=== PATIENT | male | born 1965 | race Two or more races ===

== ENCOUNTER 2018-11-22 14:56 | Inpatient (IN) | payer OTHER ==
[2018-11-22 19:12] VITALS: BMI 23.6
--- NOTE | 2018-11-22 21:55 | HP ---
CIWA Score Nausea/Vomitin (vomiting x 3) Muscle Tremors: 3 Anxiety: 4-Mod. Anxious/Guarded Agitation: 4-Moderately Restless Paroxysmal Sweats: 2 Orientation: 0-Oriented Tacttile Disturbances: 0-None Auditory Disturbances: 0-None Visual Disturbances: 0-None Headache: 0-None Present CIWA-Ar Total Score: 18 - Admission Criteria OASAS Guidelines: Admission for Medically Managed Detox: Requires at least one of the followin. CIWA greater than 12 2. Seizures within the past 24 hours 3. Delirium tremens within the past 24 hours 4. Hallucinations within the past 24 hours 5. Acute intervention needed for co occurring medical disorder 6. Acute intervention needed for co occurring psychiatric disorder 7. Severe withdrawal that cannot be handled at a lower level of care (continued vomiting, continued diarrhea, abnormal vital signs) requiring intravenous medication and/or fluids 8. Admission ROS [facility] Chief Complaint: Alcohol withdrawal symptoms Allergies/Adverse Reactions: Allergies Allergy/AdvReac Type Severity Reaction Status Date / Time No Known Allergies Allergy Verified 11/22/18 19:03 History of Present Illness: 53 years old male with a long history of alcohol dependence is seeking admission to detox. Patient reports insignificant period of sobriety. This is his first admission to [facility]. He has medical history of Diabetes Type 2 and depression. Patient reports that he is not compliant with medication administration and he does not monitor his blood sugar level because he is homeless. Blood sugar level this visit is 87mg/dl. He denies suicide attempt and suicidal ideation at this time - Ebola screening Have you traveled outside of the country in the last 21 days: No Have you had contact with anyone from an Ebola affected area: No Do you have a fever: No - Review of Systems Constitutional: Loss of Appetite, Malaise, Changes in sleep EENT: reports: Nose Congestion Respiratory: reports: No Symptoms reported Cardiac: reports: No Symptoms Reported GI: reports: Poor Appetite, Poor Fluid Intake, Vomiting, Abdominal cramping : reports: No Symptoms Reported Musculoskeletal: reports: Back Pain Integumentary: reports: Dryness, Flushing Neuro: reports: Tremors Endocrine: reports: Flushing, Increased Hunger, Increased Thirst Hematology: reports: No Symptoms Reported Psychiatric: reports: Anxious Other Systems: Reviewed and Negative Patient History - Patient Medical History Hx Anemia: No Hx Asthma: No Hx Chronic Obstructive Pulmonary Disease (COPD): No Hx Cancer: No Hx Cardiac Disorders: No Hx Congestive Heart Failure: No Hx Hypertension: No Hx Hypercholesterolemia: No Hx Pacemaker: No HX Cerebrovascular Accident: No Hx Seizures: No Hx Dementia: No Hx Diabetes: Yes (TYPE 2. NOT ON MEDIATION) Hx Gastrointestinal Disorders: No Hx Liver Disease: No Hx Genitourinary Disorders: No Hx Sexually Transmitted Disorders: No Hx Renal Disease (ESRD): No Hx Thyroid Disease: No Hx Human Immunodeficiency Virus (HIV): No (NEGATIVE 2018) Hx Hepatitis C: No Hx Depression: Yes (NOT ON MEDICATION) Hx Suicide Attempt: No (DENIES SUICIDAL ATTEMPT / SUICIDAL IDEATION AT THIS TIME ) Hx Bipolar Disorder: No Hx Schizophrenia: No - Patient Surgical History Past Surgical History: No - PPD History Previous Implant?: Yes Documented Results: Positive w/o proof Implanted On Prior [facility] Admission?: No PPD to be Administered?: Yes - Reproductive History Patient is a Female of Child Bearing Age (11 -55 yrs old): No (MALE) - Smoking Cessation Smoking history: Current every day smoker Have you smoked in the past 12 months: Yes Aproximately how many cigarettes per day: 20 Hx Chewing Tobacco Use: No Initiated information on smoking cessation: Yes 'Breaking Loose' booklet given: 11/22/18 - Substance & Tx. History Hx Alcohol Use: Yes Hx Substance Use: Yes Substance Use Type: Alcohol, Cocaine, Marijuana Hx Substance Use Treatment: Yes - Substances abused Crack Substance route: Smoking Frequency: Daily Amount used: 100 dollars Age of first use: 53 Date of last use: 11/22/18 Alcohol Substance route: Oral Frequency: Daily Amount used: 6- 10 bottles of beer Age of first use: 22 Date of last use: 11/22/18 Family Disease History - Family Disease History Family History: Denies Admission Physical Exam S - Vital Signs Vital Signs: Vital Signs - 24 hr 11/22/18 19:02 Temperature 97.7 F Pulse Rate 86 Respiratory 16 Rate Blood Pressure 140/89 - Physical General Appearance: Yes: Moderate Distress, Tremorous, Anxious HEENTM: Yes: EOMI, Normal ENT Inspection, Normal Voice Respiratory: Yes: Lungs Clear, Normal Breath Sounds, No Respiratory Distress Neck: Yes: Supple Breast: Yes: Breast Exam Deferred Cardiology: Yes: Regular Rhythm, Regular Rate Abdominal: Yes: Normal Bowel Sounds, Soft Genitourinary: Yes: Within Normal Limits Back: Yes: Normal Inspection Musculoskeletal: Yes: Back pain, Muscle Pain Extremities: Yes: Tremors Neurological: Yes: Alert, Normal Mood/Affect Integumentary: Yes: Warm Lymphatic: Yes: Within Normal Limits - Diagnostic (1) Alcohol dependence with uncomplicated withdrawal Current Visit: Yes Status: Acute (2) Nicotine dependence Current Visit: Yes Status: Chronic Qualifiers: Nicotine product type: cigarettes Substance use status: uncomplicated Qualified Code(s): F17.210 - Nicotine dependence, cigarettes, uncomplicated (3) Depression Current Visit: Yes Status: Chronic Qualifiers: Depression Type: unspecified Qualified Code(s): F32.9 - Major depressive disorder, single episode, unspecified (4) DM type 2 (diabetes mellitus, type 2) Current Visit: Yes Status: Acute Qualifiers: Diabetes mellitus complication status: without complication Cleared for Admission S - Detox or Rehab [facility] Level of Care: Medically Managed Detox Regimen/Protocol: Librium Breathalyzer - Breathalyzer Breathalyzer: 0 Urine Drug Screen - Test Device Lot number: [id number] Expiration date: 08/19/20 - Control Is test valid?: Yes - Results Drug screen NEGATIVE: No Urine drug screen results: THC-Marijuana, AMY-Cocaine, BZO-Benzodiazepines Inpatient Rehab Admission - Rehab Decision to Admit Inpatient rehab admission?: No
[2018-11-22] MEDS ORDERED: MAGNESIUM HYDROX 2400MG/30ML ORAL SUSPENSION 30 ML CUP PO PRN (22:06)
[2018-11-22] MEDS ORDERED: chlordiazePOXIDE HCL 25 MG CAPSULE PO PRN (22:06)
[2018-11-22] MEDS ORDERED: ACETAMINOPHEN 325 MG TABLET (FP) PO PRN ×2 (22:06)
[2018-11-22] MEDS ORDERED: IBUPROFEN 400 MG TABLET (FP) PO PRN (22:06)
[2018-11-22] MEDS ORDERED: hydrOXYzine PAMOATE 25 MG CAPSULE (FP) PO PRN (22:06)
[2018-11-22] MEDS ORDERED: MELATONIN 5 MG TABLETS PO PRN (22:06)
[2018-11-22] MEDS ORDERED: MAGNESIUM CITRATE 300 ML BOTTLE PO PRN (22:06)
[2018-11-22] MEDS ORDERED: BISMUTH SUBSALICYLATE 524 MG/30 ML UD PO PRN (22:06)
[2018-11-22] MEDS ORDERED: MENTHOL/PHENOL 1 EACH UD MM PRN (22:06)
[2018-11-22] MEDS ORDERED: MAG HYDROX/AL HYDROX/SIMETH 30 ML UNIT-DOSE CUP PO PRN (22:06)
[2018-11-22] MEDS ORDERED: METHOCARBAMOL 500 MG TABLET PO PRN (22:06)
[2018-11-22] MEDS: chlordiazePOXIDE HCL 25 MG CAPSULE PO SCH (23:49)
[2018-11-23] MEDS: chlordiazePOXIDE HCL 25 MG CAPSULE PO SCH ×3 (06:31→18:07)
--- NOTE | 2018-11-23 09:17 | EKG ---
Test Reason : Blood Pressure : / mmHG Vent. Rate : 080 BPM Atrial Rate : 080 BPM P-R Int : 154 ms QRS Dur : 084 ms QT Int : 392 ms P-R-T Axes : 070 -04 061 degrees QTc Int : 452 ms NORMAL SINUS RHYTHM NORMAL ECG NO PREVIOUS ECGS AVAILABLE Confirmed by ASHLYN GUTIERREZ MD ([id number]) on 11/23/2018 9:16:54 AM Referred By: CATALINA RAMÍREZ Confirmed By:ASHLYN GUTIERREZ MD
[2018-11-23] MEDS: PRENATAL VITAMINS W/ FOLIC ACID TABLET (FP) PO SCH (10:30)
[2018-11-23] MEDS: NICOTINE 14 MG/24 HOURS TOPICAL PATCH TD SCH (10:30)
[2018-11-23] MEDS: NICOTINE POLACRILEX 2 MG GUM BUC PRN ×2 (10:31→22:54)
[2018-11-23 11:38] LABS: HEMOGLOBIN 12.4 GM/dL (11.7-16.9); MCH 25.9 pg (25.7-33.7); MCHC 31.8 g/dl (32.0-35.9); MEAN CELL VOLUME 81.4 fl (80-96); MEAN PLT VOLUME 9.1 fl (7.5-11.1); PLATELET COUNT 258 K/MM3 (134-434); RBC 4.79 M/mm3 (4.00-5.60); RDW 15.2 % (11.9-15.9); WHITE BLOOD COUNT 7.1 K/mm3 (4.0-10.0)
[2018-11-23 11:47] LABS: ALBUMIN 3.2 g/dl (3.4-5.0); BILIRUBIN,TOTAL 0.2 mg/dL (0.2-1); BLOOD UREA NITROGEN 14.8 mg/dL (7-18); CALCIUM 8.8 mg/dL (8.5-10.1); CREATININE 1.1 mg/dL (0.55-1.3); POTASSIUM 3.9 mmol/L (3.5-5.1); TOT PROT 6.8 g/dl (6.4-8.2)
[2018-11-23] MEDS ORDERED: PNEUMOCOCCAL 23 VACCINE 0.5 ML VIAL IM ONE (12:00)
[2018-11-23] MEDS ORDERED: PNEUMOC 13-VAL CONJ-DIP CRM/PF 0.5 ML DISP.SYRIN IM ONE (12:00)
--- NOTE | 2018-11-23 15:10 | PN ---
[facility] CIWA - CIWA Score Nausea/Vomitin-Mild Nausea/No Vomiting Muscle Tremors: 4-Moderate,w/Arms Extend Anxiety: 4-Mod. Anxious/Guarded Agitation: 4-Moderately Restless Paroxysmal Sweats: 3 Orientation: 0-Oriented Tacttile Disturbances: 0-None Auditory Disturbances: 0-None Visual Disturbances: 0-None Headache: 0-None Present CIWA-Ar Total Score: 16 S Progress Note (SOAP) Subjective: Sweating, sxs controlled with meds Objective: 11/23/18 15:05 Last Vital Signs Temp Pulse Resp BP Pulse Ox 97.9 F 85 16 131/88 11/23/18 13:30 11/23/18 13:30 11/23/18 13:30 11/23/18 13:30 Admission labs reviewed: hyperglycemia noted Assessment: 11/23/18 15:06 Withdrawal sxs Noted with hyperglycemia Plan: Continue detox Encouraged PO water intake Hyperglycemia r/t DM (not on med), send HbA1c, continue to monitor, initiate treatment if warranted
[2018-11-23] MEDS: THIAMINE HCL 100 MG TABLET (FP) PO SCH (22:32)
[2018-11-23] MEDS ORDERED: chlordiazePOXIDE HCL 10 MG CAPSULE PO SCH (23:00)
[2018-11-24] MEDS ORDERED: chlordiazePOXIDE 5 MG CAPSULE PO ONE (05:45)
[2018-11-24] MEDS: chlordiazePOXIDE HCL 25 MG CAPSULE PO SCH ×4 (07:11→22:26)
[2018-11-24] MEDS: PRENATAL VITAMINS W/ FOLIC ACID TABLET (FP) PO SCH (10:54)
[2018-11-24] MEDS: NICOTINE POLACRILEX 2 MG GUM BUC PRN (10:55)
[2018-11-24] MEDS: NICOTINE 14 MG/24 HOURS TOPICAL PATCH TD SCH (10:55)
--- NOTE | 2018-11-24 14:42 | PN ---
S CIWA - CIWA Score Nausea/Vomitin-No Nausea/No Vomiting Muscle Tremors: 3 Anxiety: 3 Agitation: 2 Paroxysmal Sweats: 3 Orientation: 2-Disoriented Date<2 days Tacttile Disturbances: 0-None Auditory Disturbances: 0-None Visual Disturbances: 0-None Headache: 0-None Present CIWA-Ar Total Score: 13 B[facility] Progress Note (SOAP) Subjective: Anxious, Sweating, Tremors. Objective: PATIENT A & O X 1 (UNCERTAIN ABOUT CURRENT DAY / DATE AND ABOUT CURRENT LOCATION ). IN NO ACUTE DISTRESS. 11/24/18 14:44 Vital Signs Temperature 100.2 F H 11/24/18 13:07 Pulse Rate 106 H 11/24/18 13:07 Respiratory Rate 18 11/24/18 13:07 Blood Pressure 149/85 11/24/18 13:07 O2 Sat by Pulse Oximetry (%) Laboratory Tests 11/22/18 11/23/18 11/23/18 22:02 06:30 08:00 WBC 7.1 RBC 4.79 Hgb 12.4 Hct 39.0 MCV 81.4 MCH 25.9 MCHC 31.8 L RDW 15.2 Plt Count 258 MPV 9.1 Sodium Potassium Chloride Carbon Dioxide Anion Gap BUN Creatinine Est GFR (CKD-EPI)AfAm Est GFR (CKD-EPI)NonAf POC Glucometer 87 119 Random Glucose Hemoglobin A1c % Calcium Total Bilirubin AST ALT Alkaline Phosphatase Total Protein Albumin RPR Titer 11/23/18 11/23/18 11/23/18 08:00 08:00 16:49 WBC RBC Hgb Hct MCV MCH MCHC RDW Plt Count MPV Sodium 143 Potassium 3.9 Chloride 109 H Carbon Dioxide 29 Anion Gap 5 L BUN 14.8 Creatinine 1.1 Est GFR (CKD-EPI)AfAm 88.98 Est GFR (CKD-EPI)NonAf 76.77 POC Glucometer 154 Random Glucose 132 H Hemoglobin A1c % Calcium 8.8 Total Bilirubin 0.2 AST 17 ALT 18 Alkaline Phosphatase 98 Total Protein 6.8 Albumin 3.2 L RPR Titer Nonreactive 11/24/18 11/24/18 07:00 07:07 WBC RBC Hgb Hct MCV MCH MCHC RDW Plt Count MPV Sodium Potassium Chloride Carbon Dioxide Anion Gap BUN Creatinine Est GFR (CKD-EPI)AfAm Est GFR (CKD-EPI)NonAf POC Glucometer 139 Random Glucose Hemoglobin A1c % 5.7 Calcium Total Bilirubin AST ALT Alkaline Phosphatase Total Protein Albumin RPR Titer LABS NOTED. RESULT OF HGB A1C NOTED (WITHIN NORMAL RANGE). ENSURE PO FOR CALORIC SUPPLEMENTATION. 11/24/18 14:46 Assessment: 11/24/18 14:47 WITHDRAWAL SYMPTOMS. Plan: CONTINUE DETOX. INCREASE DAILY PO WATER INTAKE.
[2018-11-24] MEDS: THIAMINE HCL 100 MG TABLET (FP) PO SCH (22:27)
[2018-11-25] MEDS ORDERED: chlordiazePOXIDE HCL 10 MG CAPSULE PO PRN
[2018-11-25] MEDS ORDERED: chlordiazePOXIDE 5 MG CAPSULE ONE (05:40)
[2018-11-25] MEDS: chlordiazePOXIDE HCL 10 MG CAPSULE PO SCH ×2 (06:11→10:55)
--- NOTE | 2018-11-25 10:26 | PN ---
S CIWA - CIWA Score Nausea/Vomitin Muscle Tremors: 2 Anxiety: 2 Agitation: 2 Paroxysmal Sweats: No Perspiration Orientation: 0-Oriented Tacttile Disturbances: 0-None Auditory Disturbances: 0-None Visual Disturbances: 0-None Headache: 2-Mild CIWA-Ar Total Score: 10 BHS Progress Note (SOAP) Subjective: alert,irritable,anxious,interrupted sleep,pain in body and back Objective: 11/25/18 10:25 Vital Signs Temperature 97.9 F 11/25/18 09:19 Pulse Rate 91 H 11/25/18 09:19 Respiratory Rate 16 11/25/18 09:19 Blood Pressure 124/73 11/25/18 09:19 O2 Sat by Pulse Oximetry (%) Assessment: 11/25/18 10:25 withdrawal symptom Plan: continue detox librium regimen
[2018-11-25] MEDS: NICOTINE 14 MG/24 HOURS TOPICAL PATCH TD SCH (10:55)
[2018-11-25] MEDS: PRENATAL VITAMINS W/ FOLIC ACID TABLET (FP) PO SCH (10:55)
--- NOTE | 2018-11-25 13:07 | PN ---
S Progress Note Note: patient did not want to complete treatment,all attempts to convince patient to stay with no avail,the high risk of relapsing explained,patient signed release AMA,seen by counselor
--- NOTE | 2018-11-25 13:13 | DS ---
[facility] Detox Discharge Summary Admission Date: 11/22/18 Discharge Date: 11/25/18 - History Present History: Alcohol Dependence, Cocaine Dependence Pertinent Past History: type 2 dm depression - Physical Exam Results Vital Signs: Vital Signs Temperature 97.9 F 11/25/18 09:19 Pulse Rate 91 H 11/25/18 09:19 Respiratory Rate 16 11/25/18 09:19 Blood Pressure 124/73 11/25/18 09:19 O2 Sat by Pulse Oximetry (%) Pertinent Admission Physical Exam Findings: withdrawal signs and symptom Laboratory Last Values WBC 7.1 K/mm3 (4.0-10.0) 11/23/18 08:00 RBC 4.79 M/mm3 (4.00-5.60) 11/23/18 08:00 Hgb 12.4 GM/dL (11.7-16.9) 11/23/18 08:00 Hct 39.0 % (35.4-49) 11/23/18 08:00 MCV 81.4 fl (80-96) 11/23/18 08:00 MCH 25.9 pg (25.7-33.7) 11/23/18 08:00 MCHC 31.8 g/dl (32.0-35.9) L 11/23/18 08:00 RDW 15.2 % (11.9-15.9) 11/23/18 08:00 Plt Count 258 K/MM3 (134-434) 11/23/18 08:00 MPV 9.1 fl (7.5-11.1) 11/23/18 08:00 Sodium 143 mmol/L (136-145) 11/23/18 08:00 Potassium 3.9 mmol/L (3.5-5.1) 11/23/18 08:00 Chloride 109 mmol/L (98-107) H 11/23/18 08:00 Carbon Dioxide 29 mmol/L (21-32) 11/23/18 08:00 Anion Gap 5 MMOL/L (8-16) L 11/23/18 08:00 BUN 14.8 mg/dL (7-18) 11/23/18 08:00 Creatinine 1.1 mg/dL (0.55-1.3) 11/23/18 08:00 Est GFR (CKD-EPI)AfAm 88.98 11/23/18 08:00 Est GFR (CKD-EPI)NonAf 76.77 11/23/18 08:00 POC Glucometer 127 UNITS (80-120) 11/25/18 06:14 Random Glucose 132 mg/dL (74-106) H 11/23/18 08:00 Hemoglobin A1c % 5.7 % (4.2-6.3) 11/24/18 07:00 Calcium 8.8 mg/dL (8.5-10.1) 11/23/18 08:00 Total Bilirubin 0.2 mg/dL (0.2-1) 11/23/18 08:00 AST 17 U/L (15-37) 11/23/18 08:00 ALT 18 U/L (13-61) 11/23/18 08:00 Alkaline Phosphatase 98 U/L (45-117) 11/23/18 08:00 Total Protein 6.8 g/dl (6.4-8.2) 11/23/18 08:00 Albumin 3.2 g/dl (3.4-5.0) L 11/23/18 08:00 RPR Titer Nonreactive (NONREACTIVE) 11/23/18 08:00 - Treatment Patient has Accepted a Rehab Referral to: patient did not want to complete treatment,signed release ama - Medication Discharge Medications: Ambulatory Orders NK [No Known Home Medication] 11/22/18 - Diagnosis (1) Alcohol dependence with uncomplicated withdrawal Current Visit: Yes Status: Acute (2) DM type 2 (diabetes mellitus, type 2) Current Visit: Yes Status: Acute Qualifiers: Diabetes mellitus complication status: without complication (3) Depression Current Visit: Yes Status: Chronic Qualifiers: Depression Type: unspecified Qualified Code(s): F32.9 - Major depressive disorder, single episode, unspecified (4) Nicotine dependence Current Visit: Yes Status: Chronic Qualifiers: Nicotine product type: cigarettes Substance use status: uncomplicated Qualified Code(s): F17.210 - Nicotine dependence, cigarettes, uncomplicated - AMA Did Patient Leave Against Medical Advice: Yes
[2018-11-25 13:25] VITALS: BP 126/69; PULSE 103; TEMP 97.5
[2018-11-26] MEDS ORDERED: chlordiazePOXIDE HCL 10 MG CAPSULE PO SCH (05:00)
[2018-11-27] MEDS ORDERED: chlordiazePOXIDE HCL 10 MG CAPSULE PO ONE (05:00)
== END 2018-11-25 13:27 | disposition left against medical advice (07) | DRG 770 ==
LOC: YASAS 14:56 → Y6N 22:24
PROVIDERS: ADMIT Surgery; ATTEND Surgery
PROC: HZ2ZZZZ Detoxification Services for Substance Abuse Treatment (ICD-10-PCS; principal; 2018-11-22)
DX: F10.230 Alcohol dependence with withdrawal, uncomplicated (principal); F14.20 Cocaine dependence, uncomplicated; F17.210 Nicotine dependence, cigarettes, uncomplicated; F32.9 Major depressive disorder, single episode, unspecified; E11.65 Type 2 diabetes mellitus with hyperglycemia; Z59.0 Homelessness
CPT/HCPCS: 36415; 80053; 82962; 83036; 85027; 86480; 86593; 90732; 93005; 93010; G0009

== ENCOUNTER 2019-03-21 10:00 | Inpatient (IN) | payer OTHER ==
[2019-03-21 10:47] VITALS: BMI 24.5
--- NOTE | 2019-03-21 11:48 | HP ---
CIWA Score Nausea/Vomitin-No Nausea/No Vomiting Muscle Tremors: None Anxiety: 0-No Anxiety, at Ease Agitation: 0-Normal Activity Paroxysmal Sweats: No Perspiration Orientation: 0-Oriented Tacttile Disturbances: 0-None Auditory Disturbances: 0-None Visual Disturbances: 0-None Headache: 0-None Present CIWA-Ar Total Score: 0 - Admission Criteria OASAS Guidelines: Admission for Medically Managed Detox: Requires at least one of the followin. CIWA greater than 12 2. Seizures within the past 24 hours 3. Delirium tremens within the past 24 hours 4. Hallucinations within the past 24 hours 5. Acute intervention needed for co occurring medical disorder 6. Acute intervention needed for co occurring psychiatric disorder 7. Severe withdrawal that cannot be handled at a lower level of care (continued vomiting, continued diarrhea, abnormal vital signs) requiring intravenous medication and/or fluids 8. Patient presents the following: None of the above Admission Criteria Met: Admission criteria not met Admitting History and Physical - Smoking History Smoking history: Current every day smoker Have you smoked in the past 12 months: Yes Aproximately how many cigarettes per day: 20 - Alcohol/Substance Use Hx Alcohol Use: Yes Admission ROS [facility] Chief Complaint: I am trying to get some help Allergies/Adverse Reactions: Allergies Allergy/AdvReac Type Severity Reaction Status Date / Time No Known Allergies Allergy Verified 03/21/19 10:40 History of Present Illness: Patient is a 53 years old male with long history of alcohol dependence who presents seeking admission to detox. Patient reports insignificant period of sobriety. He was at [facility] detox this past November, he completed treatment as prescribed. As per previous history, he has positive PPD results with no proof. He had quantiferon gold in November which was positive, pt denies ever receiving treatment with [facility]. He denies alcohol related blackouts or seizures. Exam Limitations: No Limitations - Ebola screening Have you traveled outside of the country in the last 21 days: No Have you had contact with anyone from an Ebola affected area: No Have you been sick,other than usual withdrawal symptoms: No Do you have a fever: No - Review of Systems Constitutional: No Symptoms Reported EENT: reports: No Symptoms Reported Respiratory: reports: Cough, SOB with Exertion Cardiac: reports: No Symptoms Reported GI: reports: Nausea, Poor Fluid Intake, Abdominal cramping : reports: No Symptoms Reported Musculoskeletal: reports: Back Pain, Muscle Pain, Muscle Weakness Integumentary: reports: Sweating Endocrine: reports: Increased Urine Hematology: reports: No Symptoms Reported Psychiatric: reports: No Sypmtoms Reported Other Systems: Reviewed and Negative Patient History - Patient Medical History Hx Anemia: No Hx Asthma: No Hx Chronic Obstructive Pulmonary Disease (COPD): No Hx Cancer: No Hx Cardiac Disorders: No Hx Congestive Heart Failure: No Hx Hypertension: No Hx Hypercholesterolemia: No Hx Pacemaker: No HX Cerebrovascular Accident: No Hx Seizures: No Hx Dementia: No Hx Diabetes: Yes (TYPE 2. NOT ON MEDIATION) Hx Gastrointestinal Disorders: No Hx Liver Disease: No Hx Genitourinary Disorders: No Hx Sexually Transmitted Disorders: No Hx Renal Disease (ESRD): No Hx Thyroid Disease: No Hx Human Immunodeficiency Virus (HIV): No (NEGATIVE 2018) Hx Hepatitis C: No Hx Depression: Yes (NOT ON MEDICATION) Hx Suicide Attempt: No (DENIES SUICIDAL ATTEMPT / SUICIDAL IDEATION AT THIS TIME ) Hx Bipolar Disorder: No Hx Schizophrenia: No - Patient Surgical History Past Surgical History: No Hx Neurologic Surgery: No Hx Cataract Extraction: No Hx Cardiac Surgery: No Hx Lung Surgery: No Hx Breast Surgery: No Hx Breast Biopsy: No Hx Abdominal Surgery: No Hx Appendectomy: No Hx Cholecystectomy: No Hx Genitourinary Surgery: No Hx Section: No Hx Orthopedic Surgery: No Anesthesia Reaction: No - Smoking Cessation Smoking history: Current every day smoker Have you smoked in the past 12 months: Yes Aproximately how many cigarettes per day: 20 Hx Chewing Tobacco Use: No - Substances abused Crack Substance route: Smoking Frequency: Daily Amount used: 100 dollars Age of first use: 53 Date of last use: 03/20/19 Alcohol Substance route: Oral Frequency: Daily Amount used: 2pints of vodka Age of first use: 22 Date of last use: 03/21/19 Admission Physical Exam [facility] - Vital Signs Vital Signs: Vital Signs - 24 hr 03/21/19 10:41 Temperature 98.6 F Pulse Rate 93 H Respiratory 18 Rate Blood Pressure 126/80 Breathalyzer - Breathalyzer Breathalyzer: 0 Urine Drug Screen - Test Device Lot number: [id number] Expiration date: 11/19/20 - Control Is test valid?: Yes - Results Drug screen NEGATIVE: No Urine drug screen results: AMY-Cocaine
--- NOTE | 2019-03-21 12:06 | HP ---
CIWA Score Nausea/Vomitin-No Nausea/No Vomiting Muscle Tremors: None Anxiety: 0-No Anxiety, at Ease Agitation: 0-Normal Activity Paroxysmal Sweats: No Perspiration Orientation: 0-Oriented Tacttile Disturbances: 0-None Auditory Disturbances: 0-None Visual Disturbances: 0-None Headache: 0-None Present CIWA-Ar Total Score: 0 - Admission Criteria OASAS Guidelines: Admission for Medically Managed Detox: Requires at least one of the followin. CIWA greater than 12 2. Seizures within the past 24 hours 3. Delirium tremens within the past 24 hours 4. Hallucinations within the past 24 hours 5. Acute intervention needed for co occurring medical disorder 6. Acute intervention needed for co occurring psychiatric disorder 7. Severe withdrawal that cannot be handled at a lower level of care (continued vomiting, continued diarrhea, abnormal vital signs) requiring intravenous medication and/or fluids 8. Patient presents the following: None of the above Admission Criteria Met: Admission criteria not met Admitting History and Physical - Smoking History Smoking history: Current every day smoker Have you smoked in the past 12 months: Yes Aproximately how many cigarettes per day: 20 Admission ROS [facility] Chief Complaint: I need help Allergies/Adverse Reactions: Allergies Allergy/AdvReac Type Severity Reaction Status Date / Time No Known Allergies Allergy Verified 03/21/19 10:40 History of Present Illness: Patient is a 53 year old male with long history of alcohol dependence who presents seeking admission to detox, he however does not meet criteria for admission. His last detox admission was in November 2018. Patient has positive PPD with no proof, he had quantiferon gold done in November that was positive. He denies previous treatment for tuberculosis. Chest x-ray ordered. Patient meets criteria foe rehab, he agrees with the plan to admit him to a rehab bed. Exam Limitations: No Limitations - Ebola screening Have you traveled outside of the country in the last 21 days: No Have you had contact with anyone from an Ebola affected area: No Have you been sick,other than usual withdrawal symptoms: No Do you have a fever: No - Review of Systems Constitutional: Changes in sleep EENT: reports: Nose Congestion Respiratory: reports: Productive cough Cardiac: reports: No Symptoms Reported GI: reports: Poor Fluid Intake : reports: No Symptoms Reported Musculoskeletal: reports: No Symptoms Reported Integumentary: reports: No Symptoms Reported Neuro: reports: No Symptoms reported Endocrine: reports: No Symptoms Reported Hematology: reports: No Symptoms Reported Psychiatric: reports: Depressed Other Systems: Reviewed and Negative Patient History - Patient Medical History Hx Anemia: No Hx Asthma: No Hx Chronic Obstructive Pulmonary Disease (COPD): No Hx Cancer: No Hx Cardiac Disorders: No Hx Congestive Heart Failure: No Hx Hypertension: No Hx Hypercholesterolemia: No Hx Pacemaker: No HX Cerebrovascular Accident: No Hx Seizures: No Hx Dementia: No Hx Diabetes: Yes (TYPE 2. NOT ON MEDIATION) Hx Gastrointestinal Disorders: No Hx Liver Disease: No Hx Genitourinary Disorders: No Hx Sexually Transmitted Disorders: No Hx Renal Disease (ESRD): No Hx Thyroid Disease: No Hx Human Immunodeficiency Virus (HIV): No Hx Hepatitis C: No Hx Depression: Yes (NOT ON MEDICATION) Hx Suicide Attempt: No Hx Bipolar Disorder: No Hx Schizophrenia: No - Patient Surgical History Past Surgical History: No Anesthesia Reaction: No - PPD History Previous Implant?: No Documented Results: Positive w/o proof Implanted On Prior [facility] Admission?: No PPD to be Administered?: No - Smoking Cessation Smoking history: Current every day smoker Have you smoked in the past 12 months: Yes Aproximately how many cigarettes per day: 20 Hx Chewing Tobacco Use: No Initiated information on smoking cessation: Yes 'Breaking Loose' booklet given: 03/21/19 - Substances abused Crack Substance route: Smoking Frequency: Daily Amount used: 100 dollars Age of first use: 53 Date of last use: 03/20/19 Alcohol Substance route: Oral Frequency: Daily Amount used: 2pints of vodka Age of first use: 22 Date of last use: 03/21/19 Admission Physical Exam [facility] - Vital Signs Vital Signs: Vital Signs - 24 hr 03/21/19 10:41 Temperature 98.6 F Pulse Rate 93 H Respiratory 18 Rate Blood Pressure 126/80 - Physical General Appearance: Yes: No Apparent Distress HEENTM: Yes: Hearing grossly Normal, Normocephalic, Normal Voice, LUIGI, Pharynx Normal, Other (poor dentition) Respiratory: Yes: Chest Non-Tender, Decreased Breath Sounds, No Respiratory Distress, No Accessory Muscle Use Neck: Yes: No masses,lesions,Nodules, Supple Breast: Yes: Breast Exam Deferred Cardiology: Yes: Regular Rhythm, Regular Rate, S1, S2 Abdominal: Yes: Normal Bowel Sounds, Non Tender, Soft Genitourinary: Yes: Within Normal Limits Back: Yes: Other (mild kyphosis) Musculoskeletal: Yes: full range of Motion, Gait Steady Extremities: Yes: Within Normal Limits Neurological: Yes: sludge filtration attendant II-XII NML intact, Fully Oriented, Normal Mood/Affect, Normal Response Integumentary: Yes: Normal Color Lymphatic: Yes: Within Normal Limits - Diagnostic (1) Alcohol dependence with uncomplicated withdrawal Current Visit: Yes Status: Chronic (2) DM type 2 (diabetes mellitus, type 2) Current Visit: Yes Status: Acute Qualifiers: Diabetes mellitus complication status: without complication (3) Nicotine dependence Current Visit: Yes Status: Acute Qualifiers: Nicotine product type: cigarettes Substance use status: uncomplicated Qualified Code(s): F17.210 - Nicotine dependence, cigarettes, uncomplicated Cleared for Admission S - Detox or Rehab [facility] Level of Care: Medically Managed Claeared for Rehab Admission: Yes Breathalyzer - Breathalyzer Breathalyzer: 0 Urine Drug Screen - Test Device Lot number: [id number] Expiration date: 11/19/20 - Control Is test valid?: Yes - Results Drug screen NEGATIVE: No Urine drug screen results: AMY-Cocaine Inpatient Rehab Admission - Rehab Decision to Admit Inpatient rehab admission?: Yes - Initial Determination Are CD services needed?: Yes Free of communicable disease: Yes Not in need of hospitalization: No - Rehab Admission Criteria Previous failed treatment: No Poor recovery environment: Yes Comorbidities: Yes Lacks judgement: Yes Patient is meeting Inpatient Rehab admission criteria:: Yes
[2019-03-21] MEDS ORDERED: guaiFENesin 200 MG/10 ML 10 ML UNIT-DOSE CUPS PO PRN (12:12)
[2019-03-21] MEDS ORDERED: P-EPHED 60MG/TRIPROLIDI 2.5MG TABLET PO PRN (12:12)
[2019-03-21] MEDS ORDERED: ACETAMINOPHEN 325 MG TABLET (FP) PO PRN (12:12)
[2019-03-21] MEDS ORDERED: MAGNESIUM CITRATE 300 ML BOTTLE PO PRN (12:12)
[2019-03-21] MEDS ORDERED: MAGNESIUM HYDROX 2400MG/30ML ORAL SUSPENSION 30 ML CUP PO PRN (12:12)
[2019-03-21] MEDS ORDERED: hydrOXYzine PAMOATE 50 MG CAPSULE (FP) PO PRN (12:12)
[2019-03-21] MEDS ORDERED: NICOTINE POLACRILEX 2 MG GUM BUC PRN (12:12)
[2019-03-21] MEDS ORDERED: MAG HYDROX/AL HYDROX/SIMETH 30 ML UNIT-DOSE CUP PO PRN (12:12)
[2019-03-21] MEDS ORDERED: LOPERAMIDE HCL 2 MG CAPSULE PO PRN (12:12)
[2019-03-21] MEDS ORDERED: MENTHOL/PHENOL 1 EACH UD MM PRN (12:12)
[2019-03-21] MEDS ORDERED: IBUPROFEN 400 MG TABLET (FP) PO PRN (12:12)
[2019-03-21] MEDS: NICOTINE 14 MG/24 HOURS TOPICAL PATCH TD SCH (15:23)
[2019-03-21] MEDS: metFORMIN HCL 500 MG TABLET (FP) PO SCH (17:01)
[2019-03-21] MEDS: THIAMINE HCL 100 MG TABLET (FP) PO SCH (21:36)
[2019-03-21] MEDS: MELATONIN 5 MG TABLETS PO PRN (21:37)
[2019-03-22] MEDS: metFORMIN HCL 500 MG TABLET (FP) PO SCH ×2 (06:51→16:44)
[2019-03-22] MEDS: PRENATAL VITAMINS W/ FOLIC ACID TABLET (FP) PO SCH (10:23)
[2019-03-22] MEDS: NICOTINE 14 MG/24 HOURS TOPICAL PATCH TD SCH (10:23)
[2019-03-22 12:33] LABS: HEMATOCRIT 43.1 % (35.4-49); HEMOGLOBIN 13.8 GM/dL (11.7-16.9); MEAN CELL VOLUME 77.9 fl (80-96); MEAN PLT VOLUME 9.7 fl (7.5-11.1); PLATELET COUNT 202 K/MM3 (134-434); RBC 5.53 M/mm3 (4.00-5.60); RDW 15.5 % (11.9-15.9); WHITE BLOOD COUNT 8.4 K/mm3 (4.0-10.0)
[2019-03-22 12:53] LABS: ALBUMIN 3.7 g/dl (3.4-5.0); BILIRUBIN,TOTAL 0.3 mg/dL (0.2-1); BLOOD UREA NITROGEN 11.1 mg/dL (7-18); CREATININE 0.9 mg/dL (0.55-1.3); POTASSIUM 4.3 mmol/L (3.5-5.1); TOT PROT 7.4 g/dl (6.4-8.2)
--- NOTE | 2019-03-22 15:00 | CONSULT ---
[facility] Psychiatric Consult - Data Date of interview: 03/22/19 Admission source: [facility] Identifying data: Patient is a 53 year old single male, without children, unemployed, homeless, and is supported by food stamps. This is patient's first admission to rehab. Patient admitted to for alcohol and cocaine dependence. Substance Abuse History: Smoking Cessation. Smoking history: Current every day smoker. Have you smoked in the past 12 months: Yes. Aproximately how many cigarettes per day: 20. Hx Chewing Tobacco Use: No. Initiated information on smoking cessation: Yes. 'Breaking Loose' booklet given: 03/21/19. - Substances abused. Crack. Substance route: Smoking. Frequency: Daily. Amount used: 100 dollars. Age of first use: 53. Date of last use: 03/20/19. * * Alcohol. Substance route: Oral. Frequency: Daily. Amount used: 2pints of vodka. Age of first use: 22. Date of last use: 03/21/19 Medical History: diabetes. Psychiatric History: Patient denies history of psychiatric hospitalization, outpatient care, and suicide attempt. At present patient reports difficulty sleeping. Physical/Sexual Abuse/Trauma History: denies. Mental Status Exam - Mental Status Exam Alert and Oriented to: Time, Place, Person Cognitive Function: Good Patient Appearance: Well Groomed Mood: Irritable (Awaken by staff to see underwriter mortgage loan and is now irritable. ) Affect: Mood Congruent Patient Behavior: Cooperative Speech Pattern: Appropriate Voice Loudness: Mildly Soft/Quiet Thought Process: Goal Oriented Thought Disorder: Not Present Hallucinations: Denies Suicidal Ideation: Denies Homicidal Ideation: Denies Insight/Judgement: Poor Sleep: Poorly Appetite: Fair Muscle strength/Tone: Normal Gait/Station: Normal Psychiatric Findings - Problem List (Zoe 1, 2,3) (1) Alcohol-induced mood disorder Current Visit: Yes Status: Acute (2) Nicotine dependence Current Visit: Yes Status: Acute Qualifiers: Nicotine product type: cigarettes Substance use status: uncomplicated Qualified Code(s): F17.210 - Nicotine dependence, cigarettes, uncomplicated (3) Insomnia Current Visit: Yes Status: Acute (4) Alcohol use disorder Current Visit: Yes Status: Acute - Initial Treatment Plan Initial Treatment Plan: Psychoeducation provided. Rehab in progress. Will order Belsomra 10mg HS. Benefits and side effects discussed. Verbal consent given.
[2019-03-22] MEDS: THIAMINE HCL 100 MG TABLET (FP) PO SCH (21:26)
[2019-03-22] MEDS: MELATONIN 5 MG TABLETS PO PRN (21:27)
[2019-03-22] MEDS ORDERED: SUVOREXANT 10 MG TABLET PO PRN (22:00)
[2019-03-23] MEDS: metFORMIN HCL 500 MG TABLET (FP) PO SCH ×2 (07:19→16:37)
[2019-03-23] MEDS: PRENATAL VITAMINS W/ FOLIC ACID TABLET (FP) PO SCH (11:03)
[2019-03-23] MEDS: NICOTINE 14 MG/24 HOURS TOPICAL PATCH TD SCH (11:03)
--- NOTE | 2019-03-23 13:28 | PN ---
[facility] Progress Note Note: Pt is a 53 y/o male with a hx of ELSI admitted from [facility] to rehab. Pt has a hx of DM(on med) and Depression/anxiety. Pt reports he has a primary care doctor at [facility] on [address] [place] [address]. Vital Signs - 24 hr 03/23/19 03/23/19 03/23/19 00:30 03:30 07:03 Temperature 97.8 F Pulse Rate 80 Respiratory 18 18 18 Rate Blood Pressure 136/87 Laboratory Tests 03/21/19 03/22/19 03/22/19 12:33 06:50 07:50 WBC 8.4 RBC 5.53 Hgb 13.8 Hct 43.1 MCV 77.9 L MCH 25.0 L MCHC 32.0 RDW 15.5 Plt Count 202 D MPV 9.7 Sodium Potassium Chloride Carbon Dioxide Anion Gap BUN Creatinine Est GFR (CKD-EPI)AfAm Est GFR (CKD-EPI)NonAf POC Glucometer 176 111 Random Glucose Calcium Total Bilirubin AST ALT Alkaline Phosphatase Total Protein Albumin HIV 1&2 Antibody Screen HIV P24 Antigen 03/22/19 03/22/19 03/22/19 07:50 07:50 16:43 WBC RBC Hgb Hct MCV MCH MCHC RDW Plt Count MPV Sodium 140 Potassium 4.3 Chloride 107 Carbon Dioxide 26 Anion Gap 8 BUN 11.1 Creatinine 0.9 Est GFR (CKD-EPI)AfAm 113.41 Est GFR (CKD-EPI)NonAf 97.85 POC Glucometer 157 Random Glucose 106 Calcium 9.0 Total Bilirubin 0.3 AST 19 ALT 23 Alkaline Phosphatase 89 Total Protein 7.4 Albumin 3.7 HIV 1&2 Antibody Screen Negative HIV P24 Antigen Negative 03/23/19 07:18 WBC RBC Hgb Hct MCV MCH MCHC RDW Plt Count MPV Sodium Potassium Chloride Carbon Dioxide Anion Gap BUN Creatinine Est GFR (CKD-EPI)AfAm Est GFR (CKD-EPI)NonAf POC Glucometer 118 Random Glucose Calcium Total Bilirubin AST ALT Alkaline Phosphatase Total Protein Albumin HIV 1&2 Antibody Screen HIV P24 Antigen UA specimen pending A/P New pt to rehab Maintain Safety Continue rehab BGM as directed
[2019-03-23 17:32] LABS: PH,URINE 6.5 (5.0-8.0); URINE APPEARANCE TURBID; URINE BILIRUBIN NEGATIVE (NEGATIVE); URINE COLOR YELLOW; URINE GLUCOSE (UA) NEGATIVE (NEGATIVE); URINE KETONE NEGATIVE (NEGATIVE); URINE LEUK ESTERASE NEGATIVE (NEGATIVE); URINE NITRITE NEGATIVE (NEGATIVE); URINE PROTEIN NEGATIVE (NEGATIVE); URINE UROBILINOGEN 0.2 mg/dL (0.2-1.0)
[2019-03-23] MEDS: MELATONIN 5 MG TABLETS PO PRN (21:36)
[2019-03-23] MEDS: THIAMINE HCL 100 MG TABLET (FP) PO SCH (21:36)
[2019-03-24] MEDS: metFORMIN HCL 500 MG TABLET (FP) PO SCH ×2 (06:57→16:28)
[2019-03-24] MEDS: PRENATAL VITAMINS W/ FOLIC ACID TABLET (FP) PO SCH (10:43)
[2019-03-24] MEDS: NICOTINE 14 MG/24 HOURS TOPICAL PATCH TD SCH (10:44)
[2019-03-24] MEDS: THIAMINE HCL 100 MG TABLET (FP) PO SCH (21:20)
--- NOTE | 2019-03-24 23:54 | PN ---
[facility] Progress Note Note: Psychiatry Attending's note : Called by ELIZABETH Redding. Sports Equipment Racker is informed that the patient has verbalized suicidal ideation. Nurse indicates that another patient has relayed this information to staff. Chart reviewed. Consult note by knowledge management advisor Vicki (03/22/19) : appreciated. Sports Equipment Racker attempted to engage with Mr Reese via telephone. Patient declined to discuss his issues. " I have so many problems. I am tired right now. It is better that we meet tomorrow to talk about things ." Mr Reese refused to have a conversation in spite of encouragement provided by keno writer / runner. Patient withdrew from the telephone. Intervention : . Initiate Constant Observation (1:1) stat for safety. . Nurse Mr Redding identified himself as the staff currently WATCHING the patient at arm's length. . Psychiatric re-evaluation in the morning. . Dr Sarmiento will follow.
--- NOTE | 2019-03-25 00:07 | PN ---
[facility] Progress Note Note: Psychiatry Attending's note (follow-up) : Constant Observation on-going. Medical CAD DESIGNER DRAFTER Arianna Bell : made aware. Re-discussed with RN Vahid Perry. Suicide watch is now performed by nursing aide Maria Antonia Castellanos.
[2019-03-25] MEDS: metFORMIN HCL 500 MG TABLET (FP) PO SCH ×2 (07:09→16:49)
--- NOTE | 2019-03-25 11:01 | PN ---
Psychiatric Progress Note Vital Signs: Vital Signs Period Temp Pulse Resp BP Sys/Allan Pulse Ox Last 24 Hr 98.3 F 84 18-18 143/85 Date of Session: 03/25/19 Chief Complaint:: " I am tired of being watched. I never said that I wanted to kill myself ". HPI: Day 5 of rehabilitation. Psychiatric re-consult is sought in response to patient's alleged suicidal tendencies (reported by a peer to nursing staff/ denied vehemently by the patient). ROS: Unremarkable. Patient is well-groomed, ambulatory, active and cognitively intact. No somatic complaints. Current Medications: Active Medications Generic Name Dose Route Start Last Admin Trade Name Freq PRN Reason Stop Dose Admin Acetaminophen 650 mg 03/21/19 12:12 Tylenol - PO Q4H PRN FEVER Al Hydroxide/Mg Hydroxide 30 ml 03/21/19 12:12 Mylanta Oral Suspension - PO Q6H PRN DYSPEPSIA Eucalyptus/Menthol/Phenol/Sorbitol 1 each 03/21/19 12:12 Cepastat Lozenge - MM Q4H PRN SORE THROAT Guaifenesin 10 ml 03/21/19 12:12 Robitussin - PO Q6H PRN COUGH Hydroxyzine Pamoate 50 mg 03/21/19 12:12 03/21/19 21:37 Vistaril - PO 50 mg Q4H PRN Administration AGITATION Ibuprofen 400 mg 03/21/19 12:12 Motrin - PO Q6H PRN Pain level 4-6 Loperamide HCl 4 mg 03/21/19 12:12 03/24/19 16:30 Imodium - PO 4 mg Q6H PRN Administration DIARRHEA Magnesium Citrate 300 ml 03/21/19 12:12 Citroma - PO Q48H PRN CONSTIPATION Magnesium Hydroxide 30 ml 03/21/19 12:12 Milk Of Magnesia - PO DAILY PRN CONSTIPATION Melatonin 5 mg 03/21/19 22:00 03/23/19 21:36 Melatonin PO 5 mg HS PRN Administration INSOMNIA Metformin HCl 500 mg 03/21/19 16:30 03/25/19 07:09 Glucophage - PO 500 mg BID@0700,1630 USAMA Administration Nicotine 14 mg 03/21/19 12:15 03/24/19 10:44 Nicoderm Patch - TD Not Given DAILY USAMA Nicotine Polacrilex 2 mg 03/21/19 12:12 Nicorette Gum - BUC Q2H PRN NICOTINE REPLACEMENT RX Multivit/Folic Acid/Iron 1 tab 03/22/19 10:00 03/24/19 10:43 Vitamins ([facility]) - PO 1 tab DAILY USAMA Administration Pseudoephedrine/Triprolidine 1 combo 03/21/19 12:12 Actifed - PO TID PRN NASAL CONGESTION Suvorexant 10 mg 03/22/19 22:00 Belsomra PO HS PRN INSOMNIA Thiamine HCl 100 mg 03/21/19 22:00 03/24/19 21:20 Vitamin B1 - PO 100 mg HS USAMA Administration Medication(s) Change(s): Gabapentin 100 mg po tid is added to the regimen (to address anxiety). Side effects/benefits discussed with the patient. Mr Reese agrees with this plan of care. SSRI agents + NDRI (bupropion) offered : patient declines. Current Side Effect: No Lab tests ordered: No Lab tests reviewed: Yes Provider note:: Chart reviewed. Muldisciplinary progress notes + slot floorman Christine Lazo's consult note of 03/22/19 : read and appreciated. Patient is interviewed. Mr Reese states that he has not said that he wanted to kill himself. " I have many problems, I am homeless, I have no relatives to help me out, I am using drugs, I have a difficult life but I don't want to hurt myself. I have already been hurting myself by doing drugs , by staying with people that use. That is why my plan is to get as far away from [place] as I can to forget about these people and better my life. I want to go for a long-term program after I leave here ". Mr Reese is observed as neatly groomed, well-nourished and cooperative. He maintains good eye contact. Speaks well. Coherent and goal- directed. Patient is not psychotic. He admits to feeling dysphoric, anxious, moderately depressed and somewhat upset about relapsing into substance abuse. Able to verbalize a clear understanding of triggers and exhibiting full awareness about the steps necessary to address his addictions (distance from " places, people and things "). Patient denies experiencing suicidal ideation. No intent or plan. Verbalizes his intention to complete this program and go to a long-term program somewhere in [facility]. Patient is future-oriented. Has not escalated into impulsive acts on the unit. Mr Reese denies past history of suicide attempts. Has legitimate reasons to be depressed, anxious and irritable (social stressors, addictions, character disorder). Patient has expressed motivation for treatment. He is NOT at risk fo suicide at time of this examination. Mental status is stable. See MSE report for details. Patient DOES NOT need to be monitored under constant observation. Downgraded to close observation. Support and motivational counseling provided in this session. Patient is receptive to teaching. Baseline mental status. Mr Reese can be managed at [facility]. No justification for transfer to a psychiatric institution. Discussed with nurse in charge, ELIZABETH Rosas. Psychiatry-Liaison will follow as needed. Total face to face time:: 65 Mental Status Exam - Mental Status Exam Alert and Oriented to: Time, Place, Person Cognitive Function: Good Patient Appearance: Well Groomed Mood: Withdrawn, Hopeful Affect: Mood Congruent, Constricted Patient Behavior: Appropriate, Cooperative Speech Pattern: Clear, Appropriate Voice Loudness: Normal Thought Process: Intact, Goal Oriented Thought Disorder: Not Present Hallucinations: Denies Suicidal Ideation: Denies Homicidal Ideation: Denies Insight/Judgement: Fair Sleep: Well Appetite: Good Gait/Station: Normal Psychiatric Treatment Plan - Problem List (1) Alcohol use disorder Comment: . (3) Nicotine dependence Qualifiers: Nicotine product type: cigarettes Substance use status: uncomplicated Qualified Code(s): F17.210 - Nicotine dependence, cigarettes, uncomplicated Comment: . (4) Substance induced mood disorder Comment: . (5) Depressive disorder Comment: Suspected.
[2019-03-25] MEDS: PRENATAL VITAMINS W/ FOLIC ACID TABLET (FP) PO SCH (12:24)
[2019-03-25] MEDS: NICOTINE 14 MG/24 HOURS TOPICAL PATCH TD SCH (12:24)
[2019-03-25] MEDS: GABAPENTIN 100 MG CAPSULE (FP) PO SCH ×2 (14:17→21:16)
[2019-03-25] MEDS: SUVOREXANT 10 MG TABLET PO PRN (21:16)
[2019-03-25] MEDS: MELATONIN 5 MG TABLETS PO PRN (21:16)
[2019-03-25] MEDS: THIAMINE HCL 100 MG TABLET (FP) PO SCH (21:16)
[2019-03-26] MEDS: GABAPENTIN 100 MG CAPSULE (FP) PO SCH ×3 (06:25→21:28)
[2019-03-26] MEDS: metFORMIN HCL 500 MG TABLET (FP) PO SCH ×2 (06:25→16:52)
[2019-03-26] MEDS: PRENATAL VITAMINS W/ FOLIC ACID TABLET (FP) PO SCH (10:11)
[2019-03-26] MEDS: NICOTINE 14 MG/24 HOURS TOPICAL PATCH TD SCH (10:11)
[2019-03-26] MEDS: THIAMINE HCL 100 MG TABLET (FP) PO SCH (21:28)
[2019-03-26] MEDS: SUVOREXANT 10 MG TABLET PO PRN (21:29)
[2019-03-26] MEDS: MELATONIN 5 MG TABLETS PO PRN (21:30)
[2019-03-27 06:45] VITALS: BP 119/71; PULSE 83; TEMP 97.5
[2019-03-27] MEDS: metFORMIN HCL 500 MG TABLET (FP) PO SCH (06:46)
[2019-03-27] MEDS: GABAPENTIN 100 MG CAPSULE (FP) PO SCH (06:46)
--- NOTE | 2019-03-27 10:43 | DS ---
[facility] Rehab Discharge Summary - [facility] Rehab Discharge Summary Admission Date: 03/21/19 Discharge Date: 03/27/19 - History Present History: Alcohol dependence, Cocaine dependence Additional Comments: Pt is a 53 y/o male with a hx of ELSI admitted to rehab and requesting to leave today stating "It's too locked down for me here". Pt was seen by counselor, Ms Roseann Garza and arranged referral for patient to follow up with aftercare. Pt reports he has primary care with [facility] where he gets medicated everyday and has declined for this provider to send courtesy Rx for metformin to [facility] for parts picker because he gets it with his primary care. Pertinent Past History: Type 2 DM Depression - Discharge Physical Exam Vital Signs: Vital Signs Temperature 97.5 F L 03/27/19 06:45 Pulse Rate 83 03/27/19 06:45 Respiratory Rate 18 03/27/19 06:45 Blood Pressure 119/71 03/27/19 06:45 O2 Sat by Pulse Oximetry (%) Alert o x 3 nad oob ambulating with steady gait denies s/h/i cardiac:s1 s2,rrr lungs:cta, janell. extremities/skin;no edema,skin intact. Pertinent Admission Physical Exam Findings: Laboratory Tests 03/21/19 03/22/19 03/22/19 12:33 06:50 07:50 WBC 8.4 RBC 5.53 Hgb 13.8 Hct 43.1 MCV 77.9 L MCH 25.0 L MCHC 32.0 RDW 15.5 Plt Count 202 D MPV 9.7 Sodium Potassium Chloride Carbon Dioxide Anion Gap BUN Creatinine Est GFR (CKD-EPI)AfAm Est GFR (CKD-EPI)NonAf POC Glucometer 176 111 Random Glucose Calcium Total Bilirubin AST ALT Alkaline Phosphatase Total Protein Albumin Urine Color Urine Appearance Urine pH Ur Specific [place] Urine Protein Urine Glucose (UA) Urine Ketones Urine Blood Urine Nitrite Urine Bilirubin Urine Urobilinogen Ur Leukocyte Esterase RPR Titer HIV 1&2 Antibody Screen HIV P24 Antigen 03/22/19 03/22/19 03/22/19 07:50 07:50 07:50 WBC RBC Hgb Hct MCV MCH MCHC RDW Plt Count MPV Sodium 140 Potassium 4.3 Chloride 107 Carbon Dioxide 26 Anion Gap 8 BUN 11.1 Creatinine 0.9 Est GFR (CKD-EPI)AfAm 113.41 Est GFR (CKD-EPI)NonAf 97.85 POC Glucometer Random Glucose 106 Calcium 9.0 Total Bilirubin 0.3 AST 19 ALT 23 Alkaline Phosphatase 89 Total Protein 7.4 Albumin 3.7 Urine Color Urine Appearance Urine pH Ur Specific [place] Urine Protein Urine Glucose (UA) Urine Ketones Urine Blood Urine Nitrite Urine Bilirubin Urine Urobilinogen Ur Leukocyte Esterase RPR Titer Nonreactive HIV 1&2 Antibody Screen Negative HIV P24 Antigen Negative 03/22/19 03/23/19 03/23/19 16:43 07:18 13:58 WBC RBC Hgb Hct MCV MCH MCHC RDW Plt Count MPV Sodium Potassium Chloride Carbon Dioxide Anion Gap BUN Creatinine Est GFR (CKD-EPI)AfAm Est GFR (CKD-EPI)NonAf POC Glucometer 157 118 Random Glucose Calcium Total Bilirubin AST ALT Alkaline Phosphatase Total Protein Albumin Urine Color Yellow Urine Appearance Turbid Urine pH 6.5 Ur Specific [place] 1.018 Urine Protein Negative Urine Glucose (UA) Negative Urine Ketones Negative Urine Blood Negative Urine Nitrite Negative Urine Bilirubin Negative Urine Urobilinogen 0.2 Ur Leukocyte Esterase Negative RPR Titer HIV 1&2 Antibody Screen HIV P24 Antigen 03/23/19 03/24/19 03/24/19 16:36 06:56 16:26 WBC RBC Hgb Hct MCV MCH MCHC RDW Plt Count MPV Sodium Potassium Chloride Carbon Dioxide Anion Gap BUN Creatinine Est GFR (CKD-EPI)AfAm Est GFR (CKD-EPI)NonAf POC Glucometer 124 139 136 Random Glucose Calcium Total Bilirubin AST ALT Alkaline Phosphatase Total Protein Albumin Urine Color Urine Appearance Urine pH Ur Specific [place] Urine Protein Urine Glucose (UA) Urine Ketones Urine Blood Urine Nitrite Urine Bilirubin Urine Urobilinogen Ur Leukocyte Esterase RPR Titer HIV 1&2 Antibody Screen HIV P24 Antigen 03/25/19 03/25/19 03/26/19 07:07 16:49 06:23 WBC RBC Hgb Hct MCV MCH MCHC RDW Plt Count MPV Sodium Potassium Chloride Carbon Dioxide Anion Gap BUN Creatinine Est GFR (CKD-EPI)AfAm Est GFR (CKD-EPI)NonAf POC Glucometer 170 124 114 Random Glucose Calcium Total Bilirubin AST ALT Alkaline Phosphatase Total Protein Albumin Urine Color Urine Appearance Urine pH Ur Specific [place] Urine Protein Urine Glucose (UA) Urine Ketones Urine Blood Urine Nitrite Urine Bilirubin Urine Urobilinogen Ur Leukocyte Esterase RPR Titer HIV 1&2 Antibody Screen HIV P24 Antigen 03/26/19 03/27/19 16:48 06:44 WBC RBC Hgb Hct MCV MCH MCHC RDW Plt Count MPV Sodium Potassium Chloride Carbon Dioxide Anion Gap BUN Creatinine Est GFR (CKD-EPI)AfAm Est GFR (CKD-EPI)NonAf POC Glucometer 107 109 Random Glucose Calcium Total Bilirubin AST ALT Alkaline Phosphatase Total Protein Albumin Urine Color Urine Appearance Urine pH Ur Specific [place] Urine Protein Urine Glucose (UA) Urine Ketones Urine Blood Urine Nitrite Urine Bilirubin Urine Urobilinogen Ur Leukocyte Esterase RPR Titer HIV 1&2 Antibody Screen HIV P24 Antigen - Treatment Discharge Condition: Discharge condition good Hospital Course: Safety maintained. Pt declined to stay in treatment. - Medication Discharge Medications: Ambulatory Orders Metformin HCl [Glucophage] 500 mg PO DAILY 03/21/19 - Medication-Assisted Treatment (MAT) Medication-Assisted Treatment (MAT): No - Discharge Instructions Diet, activity, other medical instructions: Diet:NCS Activity: oob ad j luis Other medical instructions:Pt reports he has primary care provider at [facility] and will follow up with them for medical care. Pt declined Rx stating "they give it to me anyway". Follow up with CD aftercare referral as scheduled at [facility] - Diagnosis (1) Alcohol use disorder Status: Chronic (2) Cocaine use disorder Status: Chronic (3) DM type 2 (diabetes mellitus, type 2) Status: Chronic Qualifiers: Diabetes mellitus complication status: without complication (4) Nicotine dependence Status: Chronic Qualifiers: Nicotine product type: cigarettes Substance use status: uncomplicated Qualified Code(s): F17.210 - Nicotine dependence, cigarettes, uncomplicated - Follow-up Referral Minutes to complete discharge: 25 - AMA Did Patient Leave Against Medical Advice: Yes
== END 2019-03-27 11:00 | disposition left against medical advice (07) | DRG 770 ==
LOC: YASAS 10:00 → Y5N 12:14
PROVIDERS: ADMIT Neuromusculoskeletal Medicine & OMM; ATTEND Neuromusculoskeletal Medicine & OMM
PROC: HZ42ZZZ Group Counseling for Substance Abuse Treatment, Cognitive-Behavioral (ICD-10-PCS; principal; 2019-03-21)
DX: F10.20 Alcohol dependence, uncomplicated (principal); F14.20 Cocaine dependence, uncomplicated; F17.210 Nicotine dependence, cigarettes, uncomplicated; F19.24 Other psychoactive substance dependence with psychoactive substance-induced mood disorder; F10.24 Alcohol dependence with alcohol-induced mood disorder; F32.9 Major depressive disorder, single episode, unspecified; E11.9 Type 2 diabetes mellitus without complications; Z79.84 Long term (current) use of oral hypoglycemic drugs; R76.11 Nonspecific reaction to tuberculin skin test without active tuberculosis; R45.851 Suicidal ideations; Z59.0 Homelessness
CPT/HCPCS: 36415; 71046-TC-FY; 80053; 81003; 82962; 85027; 86593; 87389